=== PATIENT | male | born 1960 | race Native Hawaiian/Other Pacific Islander ===

== ENCOUNTER 2016-07-26 12:15 | Emergency (ER) | payer BC ==
[2016-07-26 12:23] VITALS: TEMP 97.8
[2016-07-26] MEDS ORDERED: Sodium Chloride 0.9% 1,000 ML IV STA (13:08)
[2016-07-26] MEDS ORDERED: DiphenhydrAMINE 50 mg/ml Inj IVP STA (13:08)
--- NOTE | 2016-07-26 13:14 | C.PDOC ---
History Of Present Illness <Layne Tapia - Last Filed: 07/26/16 14:26> <AlexLulú - Last Filed: 07/26/16 18:14> 55 y/o male presents to the ED with complains of left eyelid swelling and redness since waking up this morning. Redness and swelling extends to left cheek. Pt also with swelling and erythema to right jaw area. Pt thinks he was bit by insect (possible ticks) since he has a dog that sleeps in patient's bed. Pt denies fever, vision changes, cough, SOB, throat swelling or any other complaints. (Lulú Johnson) <Layne Tapia - Last Filed: 07/26/16 14:26> History Per: Patient History/Exam Limitations: no limitations Onset/Duration Of Symptoms: Hrs Current Symptoms Are (Timing): Still Present Injury To Eye?: No Severity: Moderate Quality: "Pain" Wears Contact Lens?: No Associated Symptoms: denies: Decreased Vision Recent travel outside of the [place]: No <Lulú Johnson - Last Filed: 07/26/16 18:14> Time Seen by Provider: 07/26/16 12:37 Chief Complaint (Nursing): Eye Problem Past Medical History Reviewed: Historical Data, Nursing Documentation, Vital Signs - Medical History PMH: HTN Family History: States: Unknown Family Hx - Social History Hx Alcohol Use: No Hx Substance Use: No - Immunization History Hx Tetanus Toxoid Vaccination: No Hx Influenza Vaccination: No Hx Pneumococcal Vaccination: No <Lulú Johnson - Last Filed: 07/26/16 18:14> Vital Signs: Last Vital Signs Temp 97.8 F 07/26/16 12:23 Pulse 88 07/26/16 15:00 Resp 18 07/26/16 15:00 BP 136/83 07/26/16 15:00 Pulse Ox 97 07/26/16 16:19 Review Of Systems Except As Marked, All Systems Reviewed And Found Negative. Constitutional: Negative for: Fever, Chills Eyes: Positive for: Other (left eyelid erythema/swelling extending to left cheek ) ENT: Negative for: Throat Swelling Respiratory: Negative for: Cough, Shortness of Breath Musculoskeletal: Positive for: Other (swelling and erythema to right jaw area) <Lulú Johnson - Last Filed: 07/26/16 18:14> Physical Exam - Physical Exam Appears: Non-toxic, No Acute Distress Skin: Warm, Dry, Other (swelling and erythema to left cheek area and right jaw area) Head: Atraumatic, Normacephalic Eye(s): bilateral: PERRL, EOMI, left: Eyelid Inflammation (extensively swollen with erythema, unable to invert eyelid secondary to swelling) Ear(s): Bilateral: Normal Nose: Normal Oral Mucosa: Moist Tongue: Normal Appearing, No Swelling Lips: Normal Appearing, No Swelling Throat: Normal, No Erythema Neck: Normal ROM, Supple Extremity: Normal ROM Extremity: Bilateral: Atraumatic Neurological/Psych: Oriented x3, Normal Speech <Lulú Johnson - Last Filed: 07/26/16 18:14> ED Course And Treatment - Laboratory Results Result Diagrams: 07/26/16 13:55 07/26/16 13:55 <Layne Tapia - Last Filed: 07/26/16 14:26> - Laboratory Results Result Diagrams: 07/26/16 13:55 07/26/16 13:55 O2 Sat by Pulse Oximetry: 97 (on room air) Pulse Ox Interpretation: Normal <Lulú Johnson - Last Filed: 07/26/16 18:14> Supervising Attending Note - Supervising Attending Note The Documented history was done by the: Physician Cable Worker Helper The documented physical exam was done by the: Physician Cable Worker Helper The documented procedures were done by the: Physician Cable Worker Helper - Attestation: I have personally seen and examined this patient.: Yes I have fully participated in the care of the patient.: Yes I have reviewed all pertinent clinical information, including history, physical exam and plan: Yes <Layne Tapia - Last Filed: 07/26/16 14:26> <Lulú Johnson - Last Filed: 07/26/16 18:14> - Notes: Notes:: NEW ONSET SWELLING L EYE, UPPER FACE. ?BUG BITE. NO ITCH, FEVER. HO DM. NO TRAUMA. EXAM ABOVE (Layne aTpia) Medical Decision Making <Layne Tapia - Last Filed: 07/26/16 14:26> <Lulú Johnson - Last Filed: 07/26/16 18:14> Medical Decision Making: Plan: labs, Benadryl, Pepcid, Solu-medrol IV, IV fluids. Ice pack on the affected area. On re-exam patient feels better, decreased swelling. Labs are w/ o acute changes. Patient will be d/c home with PMD follow up. (Lulú Johnson) Disposition <Layne Tapia - Last Filed: 07/26/16 14:26> - Disposition Disposition Time: 16:14 <Lulú Johnson - Last Filed: 07/26/16 18:14> - Disposition Referrals: Christopher Blake MD [Non-Staff] - Disposition: HOME/ ROUTINE Condition: IMPROVED Additional Instructions: Follow up with your PMD within 1-2 days. return to ED if feel worse. Prescriptions: DiphenhydrAMINE [Benadryl] 25 mg PO .Q4-6 H #30 cap Famotidine [Pepcid] 20 mg PO BID #20 tab predniSONE [predniSONE Tab] 2 tab PO DAILY #8 tab Instructions: General Allergic Reaction (ED) - Clinical Impression Clinical Impression: Allergic reaction to insect sting
[2016-07-26 13:30] LABS: URINE BILIRUBIN NEGATIVE (NEGATIVE); URINE BLOOD NEGATIVE (NEGATIVE); URINE COLOR Yellow (YELLOW); URINE GLUCOSE (UA) NORMAL (Normal); URINE KETONE NEGATIVE (NEGATIVE); URINE LEUKOCYTE ESTERASE NEG Leu/uL (Negative); URINE PROTEIN NEGATIVE (NEGATIVE); URINE UROBILINOGEN NORMAL mg/dL (0.2-1.0); WBC URINE < 1 /hpf (0-5)
[2016-07-26] MEDS ORDERED: DiphenhydrAMINE 50 mg/ml Inj ONE (13:54)
[2016-07-26] MEDS ORDERED: Sodium Chloride 0.9% 1,000 ML ONE (13:54)
[2016-07-26 14:11] LABS: CHLORIDE 101 mmol/L (98-107); POTASSIUM 4.2 mmol/L (3.6-5.2); SODIUM 140 mmol/L (132-148)
[2016-07-26 14:13] LABS: GFR AFRICAN-AMERICAN > 60
[2016-07-26 14:14] LABS: ALB/GLOB RATIO 1.8 (1.0-2.1); ALKALINE PHOSPHATASE 47 U/L (38-126); ALT/SGPT 44 U/L (21-72); AST/SGOT 29 U/L (17-59); BLOOD UREA NITROGEN 14 mg/dL (9-20); CALCIUM 8.4 mg/dl (8.6-10.4); CARBON DIOXIDE 27 mmol/L (22-30); GLUCOSE,RANDOM 164 mg/dL (75-110); TOTAL PROTEIN 6.8 g/dL (6.3-8.3)
[2016-07-26 14:15] LABS: BASO % 0.4 % (0.0-2.0); EOS # 0.1 K/uL (0.0-0.7); HEMATOCRIT 47.9 % (35.0-51.0); LYMPH # 1.2 K/uL (1.0-4.3); LYMPH % 13.8 % (20.0-40.0); MEAN CELL VOLUME 95.4 fL (80.0-94.0); MEAN CORPUSCULAR HEMOGLOBIN 31.6 pg (27.0-31.0); MEAN CORPUSCULAR HGB CONC 33.1 g/dL (33.0-37.0); MEAN PLATELET VOLUME 8.6 fL (7.2-11.7); MONO # 0.7 K/uL (0.0-0.8); MONO % 8.1 % (0.0-10.0); RED CELL DISTRIBUTION WIDTH 12.8 % (11.5-14.5); WHITE BLOOD COUNT 8.6 K/uL (4.8-10.8)
[2016-07-26 15:05] VITALS: BP 136/83; PULSE 88; RESP 18
[2016-07-26 16:19] VITALS: O2SAT 97
== END 2016-07-26 16:26 | disposition home or self-care (01) ==
LOC: C.ER 12:15
DX: T63.481A Toxic effect of venom of other arthropod, accidental (unintentional), initial encounter (principal); R22.0 Localized swelling, mass and lump, head; Y92.009 Unspecified place in unspecified non-institutional (private) residence as the place of occurrence of the external cause
CPT/HCPCS: 80053; 81001; 85025; 87040; 96361; 96374; 96375; 99284; J1200; J2930; J7040